=== PATIENT | female | born 1955 | race Caucasian/White ===

== ENCOUNTER 2016-07-18 13:50 | Emergency (ER) | payer MEDICAID, OTHER ==
[~2016-07-18] VITALS: Ht 172.7 cm; Wt 87.5 kg
[2016-07-18] MEDS ORDERED: ONDANSETRON HCL 4 MG/2 ML VIAL IV ONE (14:45)
[2016-07-18] MEDS ORDERED: HYDROmorphone HCL 2 MG/ML VL IV ONE ×2 (14:45→18:30)
[2016-07-18] MEDS ORDERED: ETOMIDATE (2MG/ML) 20ML VIAL IV ONE (15:00)
[2016-07-18 15:44] LABS: Basophils # (auto) 0 uL; Basophils % (auto) 0.5 % (0.0-2.0); DEFINITIVE VIEW TRANSMISSION; Eosinophils # (auto) 0.1 uL; Eosinophils % (auto) 1.4 % (0.0-7.0); Hematocrit 32.6 % (36.0-46.0); Hemoglobin 10.2 g/dL (12.2-16.2); Lymphocytes # (auto) 1.4 uL; Lymphocytes % (auto) 25.1 % (10.0-50.0); Mean Corpuscular Hemoglobin 25.1 pg (28.0-32.0); Mean Corpuscular Hgb Conc. 31.3 g/dL (32.0-36.0); Mean Corpuscular Volume 80.2 fL (80.0-100.0); Mean Platelet Volume 8.3 fL (7.4-10.4); Monocytes # (auto) 0.3 uL; Monocytes % (auto) 5.6 % (0.0-12.0); Neutrophils # (auto) 3.8 uL; Neutrophils % (auto) 67.4 % (37.0-80.0); Platelet Count (auto) 230 10^3/uL (140-450); Red Cell Distribution Width 16.1 % (11.6-16.0); White Blood Cell 5.7 10^3/uL (4.4-10.8)
[2016-07-18 15:46] LABS: BUN/Creatinine Ratio 19.8; Calcium 8.6 mg/dL (8.5-10.1); Potassium 4.2 mmol/L (3.5-5.1)
[2016-07-18 18:45] VITALS: BP 117/52
== END 2016-07-18 19:03 | disposition short-term general hospital (02) ==
LOC: EDUNIT# 13:50 → ER 13:50 → EDBD 13:50 → ER 18:53
DX: T84.020A Dislocation of internal right hip prosthesis, initial encounter (principal); Z98.51 Tubal ligation status; Z90.710 Acquired absence of both cervix and uterus; Z98.890 Other specified postprocedural states; X58.XXXA Exposure to other specified factors, initial encounter; Y93.89 Activity, other specified; Y99.8 Other external cause status; Y92.89 Other specified places as the place of occurrence of the external cause
CPT/HCPCS: 27250; 36415; 73502; 80048; 85025; 94761; 96374; 96375; 96376; 99152; 99285; J1170; J2405; J7030

== ENCOUNTER 2016-11-03 22:03 | Inpatient (IN) | payer MEDICAID ==
[~2016-11-03] VITALS: Ht 167.6 cm; Wt 97.0 kg
[2016-11-03] MEDS ORDERED: ONDANSETRON HCL 4 MG/2 ML VIAL IV ONE (23:00)
[2016-11-03] MEDS ORDERED: HYDROmorphone HCL 2 MG/ML VL IV ONE (23:00)
[2016-11-04] MEDS ORDERED: SUCCINYLCHOLINE CHLORIDE 20 MG/ML 10ML VIAL IV ONE (05:15)
[2016-11-04] MEDS ORDERED: HYDROmorphone HCL 2 MG/ML VL IV ONE (05:15)
[2016-11-04] MEDS ORDERED: LORazepam 2MG/ML-1ML VIAL IV ONE (05:15)
[2016-11-04] MEDS ORDERED: ONDANSETRON HCL 4 MG/2 ML VIAL IV ONE (05:15)
[2016-11-04] MEDS ORDERED: ETOMIDATE (2MG/ML) 20ML VIAL IV ONE ×2 (06:11→06:15)
[2016-11-04] MEDS ORDERED: DIAZEPAM 5 MG/ML 2ML SYRG IV ONE (07:00)
[2016-11-04] MEDS ORDERED: SODIUM CHLORIDE 0.9% 1,000 ML IV SCH (08:21)
[2016-11-04] MEDS ORDERED: MORPHINE SULFATE 4 MG/ML SYRG IV PRN (08:30)
[2016-11-04] MEDS ORDERED: NITROGLYCERIN 0.4 MG SL TAB SL PRN (08:30)
[2016-11-04] MEDS ORDERED: TEMAZEPAM 15 MG CAP PO PRN (08:30)
[2016-11-04] MEDS ORDERED: SODIUM CHLORIDE 0.9% 1,000 ML IV ONE (08:30)
[2016-11-04] MEDS ORDERED: PROMETHAZINE HCL 25 MG/ML 1ML IV PRN (08:30)
[2016-11-04] MEDS ORDERED: LORazepam 0.5 MG TAB PO PRN (08:30)
[2016-11-04] MEDS ORDERED: MORPHINE SULF INJ 2 MG/ML SYRINGE 1ML IV PRN (08:30)
[2016-11-04 08:32] LABS: CONDITION Y; Hematocrit 35.9 % (36.0-46.0); Mean Platelet Volume 8.1 fL (7.4-10.4)
[2016-11-04 08:37] LABS: Basophils # (auto) 0 uL; Basophils % (auto) 0.5 % (0.0-2.0); DEFINITIVE SEE PRINTOUT; Eosinophils # (auto) 0.2 uL; Eosinophils % (auto) 2.3 % (0.0-7.0); Hemoglobin 11.3 g/dL (12.2-16.2); Lymphocytes # (auto) 2.7 uL; Lymphocytes % (auto) 38.3 % (10.0-50.0); Mean Corpuscular Hemoglobin 26.9 pg (28.0-32.0); Mean Corpuscular Hgb Conc. 31.5 g/dL (32.0-36.0); Mean Corpuscular Volume 85.3 fL (80.0-100.0); Monocytes # (auto) 0.3 uL; Monocytes % (auto) 4.7 % (0.0-12.0); Neutrophils # (auto) 3.8 uL; Neutrophils % (auto) 54.2 % (37.0-80.0); Platelet Count (auto) 229 10^3/uL (140-450); Red Cell Distribution Width 18.6 % (11.6-16.0); White Blood Cell 6.9 10^3/uL (4.4-10.8)
[2016-11-04 08:45] LABS: INR 0.91 (0.9-1.15); Prothrombin Time 9.9 sec (9.37-12.3)
[2016-11-04 08:50] LABS: Anion Gap 9 (5-15); Blood Urea Nitrogen 22 mg/dL (7-18); Calcium 8.3 mg/dL (8.5-10.1); Carbon Dioxide 23 mmol/L (21-32); Chloride 111 mmol/L (98-107); Glucose 130 mg/dL (74-106); Potassium 4.7 mmol/L (3.5-5.1); Sodium 143 mmol/L (136-145)
[2016-11-04 08:52] LABS: BUN/Creatinine Ratio 28.9; GFR African American 100 mL/min; GFR Non-African American 83 mL/min
[2016-11-04 08:56] LABS: B-Type Natriuretic Peptide 176.31 pg/mL (0-100)
[2016-11-04] MEDS: SODIUM CHLORIDE 0.9% 1,000 ML IV SCH ×2 (08:57→16:22)
[2016-11-04 09:02] LABS: Temperature: 24.8 C (20.0-25.0)
[2016-11-04 09:04] LABS: Allen Test Yes; Base Excess -6.1 mmol/L (-2.0-2.0); Blood 02Sat 97.8 % (96-100); Blood COHb 0.1 % (0.5-1.5); Blood MetHb 0.3 % (0.0-1.5); HCO3 24.7 mmol/L (22-26.0); HHb 2.2 % (0.0-5.0); MODE MASK - NRB; O2Hb 97.4 % (94.0-97.0); PCO2 79.6 mmHg (35.0-45.0); PCO2(T) 79.6 mmHg (35.0-45.0); PO2 267.7 mmHg (80.0-100.0); PO2(T) 267.7 mmHg (80.0-100.0); Room 1016-ERT; Sample Type Arterial; pH 7.109 (7.350-7.450)
[2016-11-04 11:02] LABS: Allen Test Yes; Base Excess -4.7 mmol/L (-2.0-2.0); Blood 02Sat 95.6 % (96-100); Blood COHb 0.2 % (0.5-1.5); Blood MetHb 0.3 % (0.0-1.5); HCO3 22.7 mmol/L (22-26.0); HHb 4.4 % (0.0-5.0); MODE MASK - BIPAP; O2Hb 95.1 % (94.0-97.0); PCO2 52.7 mmHg (35.0-45.0); PCO2(T) 52.7 mmHg (35.0-45.0); PO2 106.6 mmHg (80.0-100.0); PO2(T) 106.6 mmHg (80.0-100.0); Room 1016-ERT; Sample Type Arterial; pH 7.253 (7.350-7.450)
[2016-11-04 11:05] VITALS: BP 116/79
[2016-11-04 13:00] VITALS: BP 105/58
[2016-11-04 14:00] VITALS: BP 126/66
[2016-11-04 15:20] LABS: Allen Test Yes; Base Excess -3.2 mmol/L (-2.0-2.0); Blood 02Sat 94.8 % (96-100); Blood COHb 0.3 % (0.5-1.5); Blood MetHb 0.3 % (0.0-1.5); HCO3 23.8 mmol/L (22-26.0); HHb 5.2 % (0.0-5.0); MODE NASAL CANNULA; O2Hb 94.2 % (94.0-97.0); PCO2 51.7 mmHg (35.0-45.0); PCO2(T) 51.7 mmHg (35.0-45.0); PO2 93.6 mmHg (80.0-100.0); PO2(T) 93.6 mmHg (80.0-100.0); Room 0294T; Sample Type Arterial; pH 7.281 (7.350-7.450)
[2016-11-04 17:00] VITALS: BP 121/71
[2016-11-04] MEDS: MORPHINE SULF INJ 2 MG/ML SYRINGE 1ML IV PRN (20:17)
[2016-11-04 21:36] VITALS: BP 115/64
[2016-11-05] MEDS: MORPHINE SULF INJ 2 MG/ML SYRINGE 1ML IV PRN ×4 (00:13→14:44)
[2016-11-05] MEDS ORDERED: PANT40TA2 PO (01:16)
[2016-11-05] MEDS ORDERED: IBUP800T24 PO (01:16)
[2016-11-05] MEDS ORDERED: DOCU1CAP31 PO (01:16)
[2016-11-05] MEDS ORDERED: PERCOT PO (01:16)
[2016-11-05] MEDS ORDERED: [UNRECOGNIZED DRUG - CODE] SL (01:16)
[2016-11-05] MEDS ORDERED: THIA1TAB PO (01:16)
[2016-11-05] MEDS ORDERED: GABA-494 PO (01:16)
[2016-11-05] MEDS ORDERED: CITA10TA70 PO (01:16)
[2016-11-05] MEDS ORDERED: BIOT5TAB3 PO (01:16)
[2016-11-05] MEDS ORDERED: SENN8.6C PO (01:16)
[2016-11-05 05:08] VITALS: BP 109/59
[2016-11-05 08:00] VITALS: BP 107/58
[2016-11-05 09:54] VITALS: BP 107/58
[2016-11-05 09:56] LABS: Urine Bilirubin Negative (Negative); Urine Color Yellow (Yellow); Urine Glucose Normal (Normal); Urine Mucus FEW (None Seen); Urine Nitrite Negative (Negative); Urine RBC 35 /hpf (0 - 4)
[2016-11-05 09:57] LABS: Urine Blood 1+ /uL (Negative); Urine Ketone 2+ (Negative)
[2016-11-05 14:21] VITALS: BP 125/65
[2016-11-05] MEDS ORDERED: HYDROmorphone HCL 2 MG/ML VL IV PRN (15:15)
[2016-11-05] MEDS: HYDROmorphone HCL 2 MG/ML VL IV PRN ×3 (15:30→21:57)
[2016-11-05 17:24] VITALS: BP 118/68
[2016-11-05] MEDS ORDERED: MILK OF MAGNESIA 30ML SUSP PO PRN (18:15)
[2016-11-05 21:56] VITALS: BP 114/69
[2016-11-06] MEDS: SODIUM CHLORIDE 0.9% 1,000 ML IV SCH ×3 (00:20→16:21)
[2016-11-06] MEDS: HYDROmorphone HCL 2 MG/ML VL IV PRN ×4 (04:27→21:23)
[2016-11-06 05:11] VITALS: BP 109/73
[2016-11-06] MEDS ORDERED: ceFAZolin 1GM/50ML D5W 0 ML IV ONE (07:03)
[2016-11-06] MEDS ORDERED: fentaNYL CITRATE 100 MCG/2 ML VL ONE (07:15)
[2016-11-06] MEDS ORDERED: MIDAZOLAM HCL 1MG/1ML-2 ML VIAL ONE (07:16)
[2016-11-06] MEDS ORDERED: ONDANSETRON HCL 4 MG/2 ML VIAL IV ONE (08:15)
[2016-11-06] MEDS ORDERED: HYDROmorphone HCL 2 MG/ML VL IV PRN (08:15)
[2016-11-06] MEDS ORDERED: PROPOFOL 10 MG/ML 20 ML IV ONE (08:24)
[2016-11-06] MEDS ORDERED: LIDOCAINE HCL 2 %PF INJ 10ML AMP IJ ONE (08:24)
[2016-11-06 13:00] VITALS: BP 124/74
[2016-11-06 17:00] VITALS: BP 121/71
[2016-11-06 20:00] VITALS: BP 123/74
[2016-11-06 21:40] VITALS: BP 123/74
[2016-11-07] MEDS: SODIUM CHLORIDE 0.9% 1,000 ML IV SCH ×3 (01:00→16:21)
[2016-11-07 05:30] VITALS: BP 103/62
[2016-11-07 09:00] VITALS: BP 140/68
[2016-11-07] MEDS: HYDROmorphone HCL 2 MG/ML VL IV PRN ×4 (09:00→22:03)
[2016-11-07 13:00] VITALS: BP 118/71
[2016-11-07 17:00] VITALS: BP 136/79
[2016-11-07 20:00] VITALS: BP 120/66
[2016-11-07 22:00] VITALS: BP 120/66
[2016-11-08] MEDS: SODIUM CHLORIDE 0.9% 1,000 ML IV SCH ×3 (00:21→16:21)
[2016-11-08 05:00] VITALS: BP 105/62
[2016-11-08 08:00] VITALS: BP 131/91
[2016-11-08] MEDS: HYDROmorphone HCL 2 MG/ML VL IV PRN ×2 (08:14→14:05)
[2016-11-08 10:09] VITALS: BP 131/76
[2016-11-08 14:34] VITALS: BP 108/74
[2016-11-08 17:33] VITALS: BP 136/75
[2016-11-08 18:28] VITALS: BP 131/91
== END 2016-11-08 20:10 | disposition home or self-care (01) | DRG 349 ==
LOC: ER 22:11 → TELE 22:12 → WEST WING 11-04 14:12 → TELE-WESTW 11-04 14:20
PROVIDERS: ADMIT Internal Medicine; ATTEND Internal Medicine
PROC: BW1C1ZZ Fluoroscopy of Lower Extremity using Low Osmolar Contrast (ICD-10-PCS; 2016-11-06)
PROC: 0SS9XZZ Reposition Right Hip Joint, External Approach (ICD-10-PCS; principal; 2016-11-06 07:21)
DX: T84.020A Dislocation of internal right hip prosthesis, initial encounter (principal); I95.9 Hypotension, unspecified; Z96.643 Presence of artificial hip joint, bilateral; M24.451 Recurrent dislocation, right hip; Y79.2 Prosthetic and other implants, materials and accessory orthopedic devices associated with adverse incidents; I10 Essential (primary) hypertension; Z98.51 Tubal ligation status; Z90.49 Acquired absence of other specified parts of digestive tract
CPT/HCPCS: 27250; 36415; 36600; 51702; 71010; 73501; 73502; 76000; 80048; 81001; 82805; 83880; 84484; 85025; 85610; 85730; 87081; 93005; 94660; 96374; 96375; 96376; J0330; J0690; J2250; J2405; J2704

== ENCOUNTER 2017-07-06 15:45 | Emergency (ER) | payer MEDICAID ==
[~2017-07-06] VITALS: Ht 167.6 cm; Wt 86.2 kg
[~2017-07-06 15:45] MED LIST: BIOT5TAB3 PO; CITA10TA70 PO; DOCU1CAP31 PO; GABA100C9 PO; IBUP800T24 PO; PANT40TA2 PO; PERCOT PO; SENN8.6C PO; THIA1TAB PO; [UNRECOGNIZED DRUG - CODE] SL
[2017-07-06] MEDS ORDERED: MORPHINE SULFATE 4 MG/ML SYR/VIAL IV ONE ×2 (17:30→18:15)
[2017-07-06 18:17] LABS: INR 0.92 (0.9-1.15); Partial Thromboplastin Time 25.2 sec (22.64-33.71)
[2017-07-06 18:23] LABS: Albumin 3.3 g/dL (3.4-5.0); Bilirubin, Total 0.3 mg/dL (0.2-1.0); Calcium 8.3 mg/dL (8.5-10.1); Potassium 4.2 mmol/L (3.5-5.1); Total Protein 6.2 g/dL (6.4-8.2)
[2017-07-06] MEDS ORDERED: ETOMIDATE (2MG/ML) 20ML VIAL IV ONE (18:30)
[2017-07-06 18:33] LABS: Basophils # (auto) 0 uL; Eosinophils # (auto) 0.2 uL; Eosinophils % (auto) 4.4 % (0.0-7.0); Hematocrit 35.2 % (36.0-46.0); Hemoglobin 11.4 g/dL (12.2-16.2); Lymphocytes # (auto) 1.7 uL; Lymphocytes % (auto) 39.3 % (10.0-50.0); Mean Corpuscular Hgb Conc. 32.3 g/dL (32.0-36.0); Mean Corpuscular Volume 89.8 fL (80.0-100.0); Monocytes # (auto) 0.2 uL; Monocytes % (auto) 5.2 % (0.0-12.0); Neutrophils # (auto) 2.2 uL; Neutrophils % (auto) 50.1 % (37.0-80.0); Nucleated Red Blood Cells % 0.1 %; Red Blood Cells 3.93 10^6/uL (4.0-5.20); Red Cell Distribution Width 14.6 % (11.8-14.3); White Blood Cell 4.4 10^3/uL (4.4-10.8)
[2017-07-06 18:46] LABS: Platelet Count (auto) 134 10^3/uL (140-450)
[2017-07-06 19:10] VITALS: BP 110/67
== END 2017-07-06 19:48 | disposition home or self-care (01) ==
LOC: EDBD 15:45 → ER 15:45
DX: T84.020A Dislocation of internal right hip prosthesis, initial encounter (principal); M19.90 Unspecified osteoarthritis, unspecified site; Z98.51 Tubal ligation status; Z90.49 Acquired absence of other specified parts of digestive tract; X58.XXXA Exposure to other specified factors, initial encounter; Y92.89 Other specified places as the place of occurrence of the external cause; Y99.8 Other external cause status; Y93.89 Activity, other specified
CPT/HCPCS: 27265; 36415; 73501; 73502; 80053; 85025; 85610; 85730; 94761; 96374; 99285; J2270; J7030

== ENCOUNTER 2017-07-12 13:33 | Emergency (ER) | payer MEDICAID ==
[~2017-07-12] VITALS: Ht 167.6 cm; Wt 77.1 kg
[2017-07-12] MEDS ORDERED: ONDANSETRON HCL 4 MG/2 ML VIAL IV ONE (14:00)
[2017-07-12] MEDS ORDERED: MORPHINE SULFATE 4 MG/ML SYR/VIAL IV ONE (14:00)
[2017-07-12 14:14] LABS: Basophils # (auto) 0 uL; Basophils % (auto) 1.2 % (0.0-2.0); Eosinophils # (auto) 0.1 uL; Eosinophils % (auto) 3.1 % (0.0-7.0); Hematocrit 37.4 % (36.0-46.0); Hemoglobin 12.1 g/dL (12.2-16.2); Lymphocytes # (auto) 1.5 uL; Lymphocytes % (auto) 40.3 % (10.0-50.0); Mean Corpuscular Hemoglobin 29.2 pg (28.0-32.0); Mean Corpuscular Hgb Conc. 32.5 g/dL (32.0-36.0); Monocytes # (auto) 0.2 uL; Monocytes % (auto) 6.2 % (0.0-12.0); Neutrophils # (auto) 1.8 uL; Neutrophils % (auto) 49.2 % (37.0-80.0); Platelet Count (auto) 175 10^3/uL (140-450); Red Blood Cells 4.15 10^6/uL (4.0-5.20); Red Cell Distribution Width 13.9 % (11.8-14.3); White Blood Cell 3.7 10^3/uL (4.4-10.8)
[2017-07-12 14:33] LABS: Albumin 3.9 g/dL (3.4-5.0); BUN/Creatinine Ratio 15.5; Bilirubin, Total 0.3 mg/dL (0.2-1.0); Calcium 8.8 mg/dL (8.5-10.1); Magnesium 2.3 mg/dL (1.6-2.6); Potassium 4.6 mmol/L (3.5-5.1); Total Protein 7.2 g/dL (6.4-8.2)
[2017-07-12 14:37] LABS: INR 0.92 (0.9-1.15); Partial Thromboplastin Time 24.7 sec (22.64-33.71)
[2017-07-12] MEDS ORDERED: ETOMIDATE (2MG/ML) 20ML VIAL IV ONE (15:00)
[2017-07-12 16:02] VITALS: BP 125/80
== END 2017-07-12 17:42 | disposition home or self-care (01) ==
LOC: EDBD 13:33 → ER 13:33 → EDUNIT# 13:33 → ER 17:42
DX: T84.020A Dislocation of internal right hip prosthesis, initial encounter (principal); M19.90 Unspecified osteoarthritis, unspecified site; Z96.643 Presence of artificial hip joint, bilateral; Z98.890 Other specified postprocedural states; Z79.899 Other long term (current) drug therapy; Z98.51 Tubal ligation status; Z90.49 Acquired absence of other specified parts of digestive tract; Y93.89 Activity, other specified; Y92.89 Other specified places as the place of occurrence of the external cause; Y99.8 Other external cause status
CPT/HCPCS: 27265; 36415; 73501; 73502; 80053; 83735; 85025; 85610; 85730; 96374; 96375; 99285; J2270; J2405

== ENCOUNTER 2017-07-23 08:10 | Emergency (ER) | payer MEDICAID ==
[~2017-07-23] VITALS: Ht 172.7 cm; Wt 84.4 kg
[2017-07-23 09:42] LABS: Basophils # (auto) 0.1 uL; Basophils % (auto) 1.3 % (0.0-2.0); Eosinophils # (auto) 0.1 uL; Eosinophils % (auto) 2.4 % (0.0-7.0); Hematocrit 36.7 % (36.0-46.0); Hemoglobin 11.8 g/dL (12.2-16.2); Lymphocytes # (auto) 1.2 uL; Lymphocytes % (auto) 28.3 % (10.0-50.0); Mean Corpuscular Hgb Conc. 32.1 g/dL (32.0-36.0); Mean Corpuscular Volume 90.2 fL (80.0-100.0); Monocytes # (auto) 0.3 uL; Monocytes % (auto) 6.4 % (0.0-12.0); Neutrophils # (auto) 2.6 uL; Neutrophils % (auto) 61.6 % (37.0-80.0); Nucleated Red Blood Cells % 0.1 %; Platelet Count (auto) 159 10^3/uL (140-450); Red Blood Cells 4.07 10^6/uL (4.0-5.20); Red Cell Distribution Width 14.5 % (11.8-14.3); White Blood Cell 4.3 10^3/uL (4.4-10.8)
[2017-07-23 10:21] LABS: Alanine Aminotransferase 20 U/L (13-56); Albumin 3.7 g/dL (3.4-5.0); Alkaline Phosphatase 69 U/L (45-117); Anion Gap 6 (5-15); Aspartate Aminotransferase 22 U/L (15-37); BUN/Creatinine Ratio 20.4; Bilirubin, Total 0.4 mg/dL (0.2-1.0); Blood Urea Nitrogen 19 mg/dL (7-18); Calcium 8.3 mg/dL (8.5-10.1); Carbon Dioxide 24 mmol/L (21-32); Chloride 111 mmol/L (98-107); GFR African American 79 mL/min; GFR Non-African American 65 mL/min; Glucose 93 mg/dL (74-106); Potassium 4.3 mmol/L (3.5-5.1); Sodium 141 mmol/L (136-145); Total Protein 6.8 g/dL (6.4-8.2)
[2017-07-23] MEDS ORDERED: LORazepam 0.5 MG TAB PO ONE (10:30)
[2017-07-23] MEDS ORDERED: traMADol HCL 50 MG TAB ONE (10:53)
[2017-07-23 10:57] VITALS: BP 128/70
[2017-07-23] MEDS ORDERED: traMADol HCL 50 MG TAB PO ONE (11:00)
== END 2017-07-23 11:26 | disposition home or self-care (01) ==
LOC: ER 08:10 → EDBD 08:10 → ER 11:26
DX: S09.90XA Unspecified injury of head, initial encounter (principal); K59.00 Constipation, unspecified; M19.90 Unspecified osteoarthritis, unspecified site; W19.XXXA Unspecified fall, initial encounter; Y93.89 Activity, other specified; Y99.8 Other external cause status; Y92.89 Other specified places as the place of occurrence of the external cause
CPT/HCPCS: 36415; 70450; 70486; 72125; 80053; 84484; 85025; 94761

== ENCOUNTER 2017-12-13 01:01 | Inpatient (IN) | payer MEDICAID ==
[~2017-12-13] VITALS: Ht 172.7 cm; Wt 82.7 kg
[2017-12-13] MEDS ORDERED: ONDANSETRON HCL 4 MG/2 ML VIAL IV ONE (02:30)
[2017-12-13] MEDS ORDERED: MORPHINE SULFATE 4 MG/ML SYR/VIAL IV ONE (02:30)
[2017-12-13] MEDS: ETOMIDATE (2MG/ML) 20ML VIAL IV ONE ×2 (03:00→03:17)
[2017-12-13] MEDS ORDERED: fentaNYL CITRATE 100 MCG/2 ML VL IV ONE ×2 (03:00→03:15)
[2017-12-13] MEDS ORDERED: ETOMIDATE (2MG/ML) 20ML VIAL IV ONE (03:15)
[2017-12-13] MEDS ORDERED: SODIUM CHLORIDE 0.9% 1,000 ML IV ONE (03:15)
[2017-12-13] MEDS ORDERED: ACETAMINOPHEN 325 MG TAB PO PRN (05:30)
[2017-12-13] MEDS ORDERED: TEMAZEPAM 15 MG CAP PO PRN (05:30)
[2017-12-13] MEDS ORDERED: ONDANSETRON HCL 4 MG/2 ML VIAL IV PRN (05:30)
[2017-12-13] MEDS ORDERED: DOCUSATE SOD 100 MG CAP PO PRN (05:30)
[2017-12-13 06:48] LABS: Urine Bacteria FEW /hpf (None Seen); Urine Blood Negative /uL (Negative); Urine Specific Gravity 1.013 (1.001-1.035); Urine WBC 3 /hpf (0 - 5)
[2017-12-13 07:16] VITALS: BP 123/59
[2017-12-13 07:53] LABS: Basophils # (auto) 0 uL; Basophils % (auto) 0.7 % (0.0-2.0); Eosinophils # (auto) 0.2 uL; Eosinophils % (auto) 4.1 % (0.0-7.0); Hemoglobin 11.2 g/dL (12.2-16.2); Lymphocytes % (auto) 42.6 % (10.0-50.0); Mean Corpuscular Hemoglobin 29.7 pg (28.0-32.0); Mean Corpuscular Volume 92.9 fL (80.0-100.0); Monocytes # (auto) 0.3 uL; Monocytes % (auto) 6.1 % (0.0-12.0); Neutrophils # (auto) 2.2 uL; Neutrophils % (auto) 46.5 % (37.0-80.0); Nucleated Red Blood Cells % 0.1 %; Platelet Count (auto) 148 10^3/uL (140-450); Red Blood Cells 3.77 10^6/uL (4.0-5.20); Red Cell Distribution Width 14.3 % (11.8-14.3); White Blood Cell 4.6 10^3/uL (4.4-10.8)
[2017-12-13 08:19] LABS: Albumin 3.2 g/dL (3.4-5.0); BUN/Creatinine Ratio 17.1; Bilirubin, Total 0.4 mg/dL (0.2-1.0); Calcium 8.3 mg/dL (8.5-10.1); Potassium 5.4 mmol/L (3.5-5.1); Total Protein 6.1 g/dL (6.4-8.2)
[2017-12-13] MEDS: CITALOPRAM HYDROBR 20 MG TAB PO SCH (09:42)
[2017-12-13] MEDS: ENOXAPARIN SOD 40 MG/0.4 ML SYRINGE SC SCH (09:43)
[2017-12-13] MEDS: FAMOTIDINE 20 MG TAB PO SCH ×2 (09:43→20:50)
[2017-12-13] MEDS: HYDROcodone-ACET 5/325MG TAB PO PRN ×2 (09:47→15:23)
[2017-12-13] MEDS: MORPHINE SULF INJ 2 MG/ML SYRINGE 1ML IV PRN ×2 (16:50→20:52)
[2017-12-13 17:00] VITALS: BP 115/70
[2017-12-13 21:57] VITALS: BP 109/67
[2017-12-14 05:00] VITALS: BP 109/72
[2017-12-14] MEDS: MORPHINE SULF INJ 2 MG/ML SYRINGE 1ML IV PRN ×4 (07:47→21:54)
[2017-12-14 09:00] VITALS: BP 100/66
[2017-12-14] MEDS: FAMOTIDINE 20 MG TAB PO SCH ×2 (09:54→22:42)
[2017-12-14] MEDS: CITALOPRAM HYDROBR 20 MG TAB PO SCH (09:54)
[2017-12-14] MEDS: ENOXAPARIN SOD 40 MG/0.4 ML SYRINGE SC SCH (10:00)
[2017-12-14] MEDS: HYDROcodone-ACET 5/325MG TAB PO PRN ×4 (11:04→23:21)
[2017-12-14 13:00] VITALS: BP 114/73
[2017-12-14 17:16] VITALS: BP 134/65
[2017-12-14 22:00] VITALS: BP 100/64
[2017-12-15 05:00] VITALS: BP 101/68
[2017-12-15 08:00] VITALS: BP 110/69
[2017-12-15] MEDS: MORPHINE SULF INJ 2 MG/ML SYRINGE 1ML IV PRN (08:18)
[2017-12-15] MEDS: HYDROcodone-ACET 5/325MG TAB PO PRN (10:07)
[2017-12-15] MEDS: CITALOPRAM HYDROBR 20 MG TAB PO SCH (10:07)
[2017-12-15] MEDS: ENOXAPARIN SOD 40 MG/0.4 ML SYRINGE SC SCH (10:07)
[2017-12-15] MEDS: FAMOTIDINE 20 MG TAB PO SCH (10:07)
== END 2017-12-15 12:35 | disposition home or self-care (01) | DRG 349 ==
LOC: EDBD 01:01 → ER 01:03 → OVERFLOW 01:04 → WEST WING 15:41
PROVIDERS: ADMIT Nurse Practitioner; ATTEND Internal Medicine
PROC: 0SWRXJZ Revision of Synthetic Substitute in Right Hip Joint, Femoral Surface, External Approach (ICD-10-PCS; principal; 2017-12-13)
DX: T84.020A Dislocation of internal right hip prosthesis, initial encounter (principal); M19.90 Unspecified osteoarthritis, unspecified site; Y79.2 Prosthetic and other implants, materials and accessory orthopedic devices associated with adverse incidents; Z96.642 Presence of left artificial hip joint; Z82.49 Family history of ischemic heart disease and other diseases of the circulatory system; Z90.710 Acquired absence of both cervix and uterus; Z90.49 Acquired absence of other specified parts of digestive tract; Y92.89 Other specified places as the place of occurrence of the external cause
CPT/HCPCS: 27265; 36415; 51702; 73501; 73502; 80053; 81001; 85025; 94761; 96361; 96374; 96375; 99152; 99153; A6257; J2405

== ENCOUNTER 2023-12-19 14:51 | Emergency (ER) | payer OTHER, MEDICAID ==
[~2023-12-19] VITALS: Ht 170.2 cm; Wt 59.0 kg
[~2023-12-19 14:51] MED LIST changes: +CITA10TA5 PO; -CITA10TA70 PO; +DOCU-209 PO; -DOCU1CAP31 PO; +GABA-1308 PO; -GABA100C9 PO; +IBUP-1455 PO; -IBUP800T24 PO; +LORA-1121 PO
[2023-12-19] MEDS ORDERED: MORPHINE SULFATE 4 MG/ML SYR/VIAL IV ONE (16:15)
[2023-12-19] MEDS: ONDANSETRON HCL 4 MG/2 ML VIAL IV ONE (17:00)
[2023-12-19] MEDS ORDERED: [UNRECOGNIZED DRUG - CODE] PO (18:40)
[2023-12-19] MEDS: fentaNYL CITRATE 100 MCG/2 ML VL IV ONE (19:11)
[2023-12-19 19:15] VITALS: BP 96/52; PULSE 67; RESP 16; O2SAT 96
[2023-12-20] MEDS ORDERED: PERCOT PO (16:12)
== END 2023-12-19 20:26 | disposition home or self-care (01) ==
LOC: EDBD 14:51 → ER 14:51
DX: S70.01XA Contusion of right hip, initial encounter (principal); M25.552 Pain in left hip; F15.90 Other stimulant use, unspecified, uncomplicated; M19.90 Unspecified osteoarthritis, unspecified site; Z98.890 Other specified postprocedural states; Z79.899 Other long term (current) drug therapy; W01.0XXA Fall on same level from slipping, tripping and stumbling without subsequent striking against object, initial encounter; Y93.89 Activity, other specified; Y92.89 Other specified places as the place of occurrence of the external cause; Y99.8 Other external cause status
CPT/HCPCS: 72192; 96374; 96375; 99285; J2405; J3010